=== PATIENT | male | born 1990 | race Hispanic/Latino ===

== ENCOUNTER 2025-06-21 10:24 | Emergency (ER) | payer OTHER, SELFPAY ==
--- NOTE | 2025-06-21 10:27 | ED.GENMED ---
History of Present Illness
General
Chief Complaint: Foreign Body Ingestion
Time Seen by Provider: 06/21/25 10:27
History of Present Illness
History of Present Illness:
FOCUSED PAST MEDICAL HISTORY
- Anxiety/depression, substance abuse
REVIEW OF OLD RECORDS
- No old records available for review
Note:
CHIEF COMPLAINT(S)
The patient presents without any complaints but requires evaluation following a correctional facilitys screening.
HISTORY OF PRESENT ILLNESS
The patient is a 35-year-old male who came in for evaluation after a scan conducted at the intermediate. They reported undergoing a procedure involving a box-like machine resembling a shower, believed to be an X-ray. The scan reportedly revealed a circular
object internally around the lower rib area. The patient denies ingesting any foreign objects and states, 'I havent taken anything. Im actually hungry.' The patient was cooperative and agreed to an X-ray at the emergency department for further
evaluation. He has not reported any discomfort or symptoms and denies having any previous surgeries or foreign bodies that could explain the scan findings. He expressed a desire for food and seemed inquiring about the nature of the machine used at
the intermediate and the findings it revealed.
ADDITIONAL HISTORY OBTAINED FROM SOURCES OTHER THAN THE PATIENT
According to law enforcement officers, the scan at the correctional facility suggested an internal circular object, but the nature of this object is unclear.
PHYSICAL EXAM
General: Alert, no acute distress.
Skin: Warm, dry.
Head: Normocephalic, atraumatic.
Neck: Supple, trachea midline.
Eye Ears, nose, mouth and throat: Oral mucosa moist.
Cardiovascular: Normal peripheral perfusion, No edema.
Respiratory: Respirations are non-labored.
Gastrointestinal: Abdomen nondistended.
Back: Normal range of motion, Normal alignment.
Musculoskeletal: Normal ROM, normal strength.
Neurological: Alert and oriented to person, place, time, and situation, No focal neurological deficit observed.
Psychiatric: Cooperative, appropriate mood & affect.
PLAN
An X-ray was ordered to further investigate the possible presence of a foreign body as suggested by the initial scan at the correctional facility. The patients nutritional needs will be addressed upon completion of the imaging.
DIFFERENTIAL DIAGNOSIS
The Differential Diagnosis includes, in no particular order and is not limited to:
1. Foreign body ingestion
2. Artifactual finding on initial scan
3. Post-surgical changes (despite denial of history)
4. Intestinal obstruction
5. Pneumonia or pleural effusion
6. Calcified granuloma
7. Lipoma or benign soft tissue mass
8. Malignancy
9. Hiatal hernia
10. Abdominal aortic calcification
RADIOLOGY
- X-ray obtained which shows no foreign body
UPDATE
-SUMMARY OF ENCOUNTER
The patient is a 35-year-old male who was evaluated in the emergency department following a scan at a correctional facility, which suggested the presence of a circular object internally around the lower rib area. The patient denied any foreign body
ingestion. An X-ray was ordered and reviewed, which was unremarkable. The patient was cooperative, denied any symptoms, and expressed hunger during the visit.
DISPOSITION
Discharge.
PLAN
Address the patients nutritional needs following the completion of imaging. Given the unremarkable X-ray findings, continue to monitor for any emerging symptoms and educate the patient regarding signs to watch for that could warrant a return visit
to the emergency department.
INDEPENDENT REVIEW OF LABS AND INTERPRETATION OF TESTS
My independent interpretation of the X-ray is unremarkable, showing no evidence of a foreign body or other acute pathology.
PATIENT EDUCATION AND COUNSELING
Provided education on the importance of reporting any new symptoms such as pain, nausea, or changes in bowel habits, and advised when to return to the emergency department or seek further medical attention.
MEDICAL DECISION MAKING
- Number and Complexity of Problems Addressed: Chronic conditions affecting care
- Differential diagnosis includes:
1. Foreign body ingestion
2. Artifactual finding on initial scan
3. Post-surgical changes (despite denial of history)
4. Intestinal obstruction
5. Pneumonia or pleural effusion
6. Calcified granuloma
7. Lipoma or benign soft tissue mass
8. Malignancy
9. Hiatal hernia
10. Abdominal aortic calcification
- Data:
Category 1:
- Clinical information was obtained from an independent historian.
- My independent interpretation of the X-ray study is unremarkable.
- Risk: Consideration of Admission/Observation: Escalation of care including admission/observation was considered given the complexity and risk of the patients presenting complaint. However, ultimately I feel the patient is safe for outpatient
management with close follow-up. Reasoning: Work-up reassuring, does not reveal any acute life/organ-threatening processes; patients symptoms well controlled upon reevaluation; reexamination is reassuring; vitals are stable; patient agreeable with
discharge; reliable for follow-up.
DIAGNOSIS
No acute findings identified related to the suspected foreign body, ICD-10: Z03.89 (Encounter for observation for other suspected diseases and conditions ruled out).
Phy Exam
Physical Exam
Physical Exam:
See HPI
Course
Orders/Labs/Results
Orders:
Orders
06/21/25 10:29
CR Abdomen - 2 Views Urgent
Reason For Exam: police reports abnormal screening imaging study?FB
Vital Signs
Initial and Last Documented VS:
Initial Vital Signs
Pulse Ox
100
06/21/25 10:29
Last Documented Vital Signs
Pulse BP Pulse Ox
65 113/75 99
06/21/25 11:24 06/21/25 11:24 06/21/25 11:24
*Pulse Oximetry
Patient hypoxic: no
*Critical Care Note
Total Time (30-74mins, 75-104mins- exclusive of procedures): Not Applicable
ED Attending Note
-
Portions of this chart may have been created with voice recognition software.� Occasional wrong word or��sound alike� substitutions may have occurred due to the inherent limitations of voice recognition software.
Discharge Plan
Departure
Patient Disposition: Home (Routine Discharge)
Date of Disposition: 06/21/25
Time of Disposition: 11:20
Patient with high blood pressure during this ER visit?: Yes
Discharge Problem:
Encounter for medical assessment
Referrals:
[facility] [Family Provider, General]
Activity Restrictions/Additional Instructions:
The x-ray shows no sign of foreign body ; some constipation is suggested on the x-ray. Return here if worse or other concerns. I feel the patient is medically cleared and stable for incarceration/police custody.
Interventions
Interventions:
*Risk Screen - Suicide Last Done: 06/21/25 10:34
*General Assessment Last Done: 06/21/25 10:34
*Neglect/Abuse Screening Last Done: 06/21/25 10:34
*ED- Fall Risk Assessment Last Done: 06/21/25 10:32
*ED COVID-19 Vaccine History Last Done: 06/21/25 10:32
*ED Influenza Vaccine History Last Done: 06/21/25 10:32
Discharge Date and Time
Print Language: YI
[2025-06-21 10:30] VITALS: BMI 18.3
[2025-06-21 10:31] VITALS: BP 113/74
[2025-06-21 11:00] VITALS: BP 114/87
[2025-06-21 11:24] VITALS: BP 113/75
== END 2025-06-21 12:15 | disposition home or self-care (01) ==
LOC: EMR 10:24
PROVIDERS: EMERGENCY PHYSICIAN Emergency Medicine
DX: Z03.89 Encounter for observation for other suspected diseases and conditions ruled out (principal); F41.8 Other specified anxiety disorders; F19.10 Other psychoactive substance abuse, uncomplicated
CPT/HCPCS: 99285; 74019